=== PATIENT | male | born 1995 | race Caucasian/White ===

== ENCOUNTER 2016-07-29 12:18 | Emergency (ER) | payer BC, OTHER ==
--- NOTE | 2016-07-29 12:56 | Emergency Department Record ---
History of Present Illness - General Chief complaint: Vomiting Stated complaint: VOMITING/LOOSE STOOLS Time Seen by Provider: 07/29/16 12:44 Source: Patient Mode of Arrival: Ambulatory Limitations: No limitations - History of Present Illness Initial comments: The patient is here due to a 12 hour hx of frequent bouts of nausea, vomiting and now loose stools. He has vomited 10-12 times and has had 5-6 episodes of loose stools. The patient denies any blood in the vomit or stool and has developed diffuse abdominal pain after the vomiting started. The patient states his girlfriend is ill with similar issues and additionally that he has a long hx of chronic abdominal pain and vomiting. The patient states he has multiple evaluations for this including CT's, an EGD last year and multiple family doctor and ED visits and has been told he has GERD. MD complaint: Diarrhea, Nausea, Vomiting Onset/Timin -: Hour(s) Description of Vomiting: Watery Description of Diarrhea: Other Associated Abdominal Pain: Yes Location: Diffuse Radiation: Back Severity: Moderate Severity scale (1-10): 7 Quality: Constant Consistency: Constant Improves with: None Worsens with: None Associated Symptoms: Other - Related Data Previous Rx's Medication Instructions Recorded Omeprazole [Prilosec] 20 mg PO DAILY #30 cap 07/29/16 Ondansetron [Zofran Odt] 4 mg SL .Q4-6H PRN #12 tab.rapdis 07/29/16 Allergies Allergy/AdvReac Type Severity Reaction Status Date / Time No Known Drug Intolerances Allergy Unknown PT UNSURE Verified 07/29/16 12:32 OF REACTION Travel Screening - Travel/Exposure Within Last 30 Days Have you traveled within the last 30 days?: No - Travel/Exposure Within Last Year Have you traveled outside the [place] in the last year?: No - Additonal Travel Details Have you been exposed to anyone with a communicable illness?: No - Travel Symptoms Symptom Screening: None Review of Systems Constitutional: Denies: Chills, Fever Eyes: Denies: Eye discharge ENT: Denies: Congestion Respiratory: Denies: Cough, Dyspnea Past Medical History - SOCIAL HISTORY Smoking Status: Never smoker Alcohol Use: None Drug Use Detail:: Marijuana - RESPIRATORY Hx Respiratory Disorders: No - CARDIOVASCULAR Hx Cardio Disorders: No - NEURO Hx Neuro Disorders: No - GI Hx GI Disorders: No - Hx Genitourinary Disorders: No - ENDOCRINE Hx Endocrine Disorders: No - MUSCULOSKELETAL Hx Musculoskeletal Disorders: No - PSYCH Hx Psych Problems: No - HEMATOLOGY/ONCOLOGY Hx Hematology/Oncology Disorders: No Family Medical History Any Significant Family History?: Yes Hx HTN: Father Hx Kidney Disease: Father Physical Exam - General General Appearance: Alert, Oriented x3, Cooperative, No acute distress - Head Head exam: Atraumatic, Normocephalic, Normal inspection - Eye Eye exam: Normal appearance, PERRL - ENT Throat exam: Normal inspection. negative: Tonsillar erythema, Tonsillar exudate - Neck Neck exam: Normal inspection, Full ROM. negative: Tenderness - Respiratory Respiratory exam: Normal lung sounds bilaterally. negative: Respiratory distress - Cardiovascular Cardiovascular Exam: Regular rate, Normal rhythm, Normal heart sounds - GI/Abdominal GI/Abdominal exam: Soft, Normal bowel sounds. negative: Guarding, Rebound, Rigid, Tenderness - Extremities Extremities exam: Normal inspection, Full ROM, Normal capillary refill. negative: Tenderness - Neurological Neurological exam: Alert, Normal gait. negative: Abnormal gait, Motor sensory deficit Course Vital Signs 07/29/16 12:33 Temperature 97.6 F Pulse Rate 55 L Respiratory 16 Rate Blood Pressure 125/66 Pulse Ox 97 - Reevaluation(s) Reevaluation #1: The patient is feeling better at this time. He has no nausea or vomiting. 07/29/16 13:57 Reevaluation #2: The patient is doing better and denies any nausea, vomiting, or abdominal pain. 07/29/16 14:16 Reevaluation #3: The patient is feeling better after the 2 liters of IVF. He is now having some mild abdominal pain in the upper abdomen. On exam he is having mild upper abdominal tenderness. I did recommend an abdominal CT but the patient is refusing. I explained to him that we could be missing a splenic issue, appendicitis or some other surgical cause for his pain. The patient is still refusing the test. I explained to him that we cannot be held liable for NOT ordering the test because he could go home and develop a surgical abdomen, sepsis, become disabled and . The patient understands and accepts the risks. 07/29/16 14:40 Medical Decision Making - Data Complexity MDM Data: Labs Ordered and/or Reviewed - Lab Data Result diagrams: 07/29/16 13:00 07/29/16 13:00 Disposition Disposition: Discharge Clinical Impression: Gastroenteritis Disposition: Against Medical Advice Condition: (2) Stable Instructions: Acute Nausea and Vomiting (ED) Additional Instructions: Please drink only clear liquids for 6 hours then slowly advance your diet. Please use Zofran for nausea and take the Prilosec as directed. Please see your PCP later this week for recheck and return to the ER for any increased pain, fever, vomiting, or bleeding. Prescriptions: Omeprazole [Prilosec] 20 mg PO DAILY #30 Ondansetron [Zofran Odt] 4 mg SL .Q4-6H PRN #12 tab.rapdis PRN Reason: Nausea Forms: Patient Portal Access Time of Disposition: 14:45
[2016-07-29] MEDS: ONDANSETRON HCL IV 4 MG/2 ML VIAL IV ONE (13:00)
[2016-07-29] MEDS: 0.9 % SODIUM CHLORIDE 1,000 ML BAG IV ONE ×2 (13:01→14:01)
[2016-07-29 13:18] LABS: HEMATOCRIT 44.8 % (42.0-52.0); HEMOGLOBIN 15.6 gm/dl (14.0-18.0); MEAN CELL VOLUME 83.4 fl (81-97); MEAN CORPUSCULAR HEMOGLOBIN 29.1 pg (27-33); MEAN CORPUSCULAR HGB CONC 34.8 g/dl (32-36); MEAN PLATELET VOLUME 10.7 fl (7.4-10.4); PLATELET COUNT 271 K/uL (130-400); RED BLOOD COUNT 5.37 M/uL (4.40-5.70); WHITE BLOOD COUNT W/O DIFF 12.1 K/uL (4.2-12.2)
[2016-07-29] MEDS: SUCRALFATE 1 G/10 ML UD PO ONE (13:18)
[2016-07-29 13:21] LABS: URINE APPEARANCE CLEAR; URINE BILIRUBIN SMALL (NEGATIVE); URINE BLOOD NEGATIVE (NEGATIVE); URINE COLOR YELLOW; URINE GLUCOSE (UA) NEGATIVE (NEGATIVE); URINE LEUKOCYTE ESTERASE NEGATIVE (NEGATIVE); URINE NITRITE NEGATIVE (NEGATIVE); URINE PROTEIN TRACE (NEGATIVE)
[2016-07-29 13:24] LABS: URINE KETONE 80 mg/dL (NEGATIVE)
[2016-07-29 13:33] LABS: ALBUMIN 4.9 gm/dL (3.5-5.0); ALKALINE PHOSPHATASE 76 U/L (38-126); ALT/SGPT 26 U/L (21-72); AMYLASE 71 U/L (30-110); ANION GAP 12.1 (7-16); AST/SGOT 29 U/L (17-59); BILIRUBIN,TOTAL 0.97 mg/dL (0.2-1.3); BLOOD UREA NITROGEN 17 mg/dL (9-20); CARBON DIOXIDE 24.9 mmol/L (22-30); CREATININE 0.9 mg/dL (0.66-1.25); EST GLOMERULAR FILTRATION RATE > 60 ml/min; GLUCOSE,RANDOM 129 mg/dL (70-110); LIPASE 34 U/L (23-300); TOTAL PROTEIN 7.9 gm/dL (6.3-8.2)
[2016-07-29 13:34] LABS: URINE EPITHELIAL CELLS 0 - 2 (FEW); URINE RBC 0 - 2 (NONE SEEN); URINE WBC 0 - 2 (0-2/hpf)
[2016-07-29 13:35] LABS: URINE BACTERIA NONE SEEN; URINE MUCUS LIGHT
[2016-07-29] MEDS: MAGNESIUM HYDROXIDE/AL HYDROX 30 ML, LIDOCAINE VISC 2% 200 MG PO ONE ×2 (14:01)
== END 2016-07-29 15:00 | disposition left against medical advice (07) ==
LOC: ER 12:18
DX: K52.9 Noninfective gastroenteritis and colitis, unspecified (principal); R11.2 Nausea with vomiting, unspecified; R19.7 Diarrhea, unspecified; R10.84 Generalized abdominal pain
CPT/HCPCS: 99284 ×2; 96374; 96361; 82150; 83690; 80076; 80048; 81001; 85027; J2405; J7030